=== PATIENT | female | born 1960 | race Two or more races ===

== ENCOUNTER 2016-02-20 16:44 | Emergency (ER) | payer OTHER ==
[2016-02-20] MEDS ORDERED: TETANUS,DIPHTHERIA TOXOID SYRINGE IM V ONE (17:32)
[2016-02-20] MEDS ORDERED: IBUPROFEN 800 MG TABLET ONE (17:58)
== END 2016-02-20 18:09 | disposition home or self-care (01) ==
LOC: ED 16:44
DX: L60.0 Ingrowing nail (principal); Z23 Encounter for immunization
CPT/HCPCS: 90714; 90471; 99283 ×2; 11765 ×2; A9270

== ENCOUNTER 2016-03-04 14:48 | Emergency (ER) | payer OTHER | END 2016-03-04 16:06 | disposition home or self-care (01) | LOC: ED 14:48 | DX: L60.0 Ingrowing nail (principal) ==